=== PATIENT | female | born 1940 | race Caucasian/White ===

== ENCOUNTER 2016-08-22 08:15 | Day surgery (SDC) | payer MEDICARE ==
[2016-08-21 12:26] LABS: HEMATOCRIT 37.1 % (36.0-48.0); HEMOGLOBIN 11.3 g/dL (12-16); MCH 25.8 pg (26.0-34.0); MCHC 30.5 g/dL (31.0-37.0); MCV 84.7 fL (80.0-100.0); MEAN PLATELET VOLUME 10.2 fL (7.4-10.4); RBC 4.38 10x6/uL (4.00-5.40); RDW 14.2 % (11.5-14.5)
[2016-08-21 12:41] LABS: ANION GAP 12.7 mmol/L (8-16); CALCIUM 8.9 mg/dL (8.5-10.1); CARBON DIOXIDE 29.3 mmol/L (21.0-32.0); CREATININE - SERUM 1.9 mg/dL (0.6-1.3)
[~2016-08-22] VITALS: Ht 162.6 cm; Wt 77.1 kg
[~2016-08-22 08:15] MED LIST: ATIVAN0.5 MG PO; CLARITIN 10 MG10 MG PO; COLACE100 MG PO; GLIMEPIRIDE2 MG PO; GLUCOPHAGE1000 MG PO; HYDRALAZINE HCL25 MG PO; JANUVIA100 MG PO; LOPRESSOR25 MG PO; MOBIC7.5 MG PO; OS-CAL500 MG PO; PERCOCET 10/3251 TA1 PO; PRAVACHOL40 MG PO; PRILOSEC20 MG PO; TRIGLIDE160 MG PO; VITAMIN D5000 UNIT PO; ZESTRIL40 MG PO
[2016-08-22] MEDS ORDERED: TRIAMTERENE-HCT1 TA1 PO (08:55)
[2016-08-22 08:57] VITALS: Ht 162.6 cm; Wt 77.1 kg
[2016-08-22] MEDS ORDERED: NORCO 7.5/325 T1 TA1 PO (11:35)
--- NOTE | 2016-08-22 13:29 | NUR ---
1133 BACK FROM LT MIDDLE FINGER TRIGGER RELEASE. LET ARM DRESSING C/D/I ARM ELEVATED ON PILLOW AND ICED. DENIES PAIN WIGGLES FINGERS COLOR PINK GOOD CAPILLARY REFILL TO NAIL BEDS.
--- NOTE | 2016-08-22 13:41 | NUR ---
1203 V/S TAKEN TO TH BR WITH ASSISTACE HAD A BM ALSO ASSISTED WITH [facility]INN CARE AND PAD APPLIED.
--- NOTE | 2016-08-22 13:42 | NUR ---
1245 IV DCD CATHETER INTACT. THEN WENT OVER DISCHARGE INSTRUCTIONS LEFT ARM HAND REMAINS ELEVATED. SENT WITH ICE PACK AND SCRIPT AND FOR FOLLOW UP APPOINTMENT. ASSISTED WITH DRESING.
--- NOTE | 2016-08-22 13:44 | NUR ---
7382 LEFT WITH FAMILY VIA W/C.
--- NOTE | 2016-10-07 12:19 | OP ---
PATIENT NAME: JANNIE GUILLERMO MEDICAL RECORD: [id number] :42 LOCATION:[facility] ADMISSION DATE: SURGEON: NEFTALY WHITLEY MD DATE OF OPERATION: 09/19/2016 DATE: 08/22/2016 PREOPERATIVE DIAGNOSIS: Left middle finger trigger finger. POSTOPERATIVE DIAGNOSIS: Left middle finger trigger finger. PROCEDURE PERFORMED: Left middle finger trigger release. SURGEON: Tanner Whitley MD. ANESTHESIA: TIVA with local. CONDITION: She tolerated the procedure well and was transferred to the recovery room in stable condition. INDICATIONS: This is a 76-year-old female with triggering of her left middle finger. This has got progressively worse. We discussed the options and she wanted to have this released. OPERATIVE REPORT: The patient was taken to the operating room and placed in supine position. TIVA anesthesia was obtained. Left hand was confirmed to be the correct hand. It was prepped and draped in normal fashion. Once this was accomplished, a small incision was made across the A1 satinder area. After the initial incision, blunt dissection was done down to the tendon sheath. The tendon sheath at was cut in line with the tendon. The finger was flexed and extended to verify that it was moving freely. After this was accomplished, I then irrigated, then closed with 3-0 Prolene, placed in soft dressing. She was awakened and transferred to the recovery room in stable condition, having tolerated the procedure well. TRANSINT:[id number] Voice Confirmation ID: [id number] DOCUMENT ID: [id number] NEFTALY WHITLEY MD at 1219 CC: [id number] DICTATION DATE: 09/19/16 1148 [employer] [employer]ER: 09/19/16 1446 [facility] 08/22/16 [place] [id number]
== END 2016-08-22 12:55 | disposition home or self-care (01) ==
LOC: D.OPS 08:15 → D.PAN 10:10 → D.OPS 10:30
PROVIDERS: Anesthesiology
DX: M65.332 Trigger finger, left middle finger (principal)

== ENCOUNTER → 2016-10-22 10:55 | Outpatient (CLI) | payer MEDICARE ==
[2016-08-22 08:57] VITALS: BMI 29.2
[~2016-10-22 10:55] MED LIST changes: +NORCO 7.5/325 T1 TA1 PO; +TRIAMTERENE-HCT1 TA1 PO
[2016-10-22 11:36] LABS: HEMOGLOBIN A1C 6.5 % (4.8-6.0)
[2016-10-22 11:44] LABS: ALKALINE PHOSPHATASE 92 U/L (46-116); ALT (SGPT) 18 U/L (10-68); BILIRUBIN - TOTAL 0.25 mg/dL (0.2-1.3); CALC OSMOLALITY 291 mosm/kg (275-300); CALCIUM 8.9 mg/dL (8.5-10.1); CARBON DIOXIDE 25.4 mmol/L (21.0-32.0); CHLORIDE - SERUM 103 mmol/L (98-107); CHOLESTEROL, TOTAL 183 mg/dL (0-200); CREATININE - SERUM 1.8 mg/dL (0.6-1.3); GLUCOSE 144 mg/dL (74-106); HDL CHOLESTEROL 37 mg/dL (32-96); POTASSIUM - SERUM 4.8 mmol/L (3.5-5.1); PROTEIN - SERUM 7.8 g/dL (6.4-8.2); SODIUM 139 mmol/L (136-145); TRIGLYCERIDE 436 mg/dL (30-200); UREA NITROGEN 43 mg/dL (7-18); eGFR NON AFRICAN AMERICAN 29 mL/min (90-120)
== END | disposition home or self-care (01) ==
LOC: D.LAB 10:55
PROVIDERS: Family Medicine
DX: E11.9 Type 2 diabetes mellitus without complications (principal); I10 Essential (primary) hypertension; E78.3 Hyperchylomicronemia; M15.9 Polyosteoarthritis, unspecified

== ENCOUNTER → 2017-06-24 08:59 | Outpatient (CLI) | payer MEDICARE ==
[2016-08-22 08:57] VITALS: BMI 29.2
[2017-06-24 09:35] LABS: BASOPHILS 0.2 % (0-2); EOSINOPHILS 1.5 % (0-7); HEMATOCRIT 40.9 % (36.0-48.0); IMMATURE GRANULOCYTES 0.4 % (0-5); LYMPHOCYTES 20.4 % (15-50); MCH 26.4 pg (26.0-34.0); MCHC 31.8 g/dL (31.0-37.0); MCV 83.1 fL (80.0-100.0); MEAN PLATELET VOLUME 9.9 fL (7.4-10.4); MONOCYTES 10.2 % (2-11); NEUTROPHILS 67.3 % (40-80); PLATELET COUNT 203 10x3/uL (130-400); RBC 4.92 10x6/uL (4.00-5.40); RDW 13.7 % (11.5-14.5); WBC 12.8 10x3/uL (4.8-10.8)
[2017-06-24 10:04] LABS: ANION GAP 13.1 mmol/L (8-16); BILIRUBIN - TOTAL 0.32 mg/dL (0.2-1.3); CALCIUM 9.4 mg/dL (8.5-10.1); CARBON DIOXIDE 28.6 mmol/L (21.0-32.0); CHOL - HDL RATIO 3.9 ratio (2.3-4.1); CREATININE - SERUM 1.6 mg/dL (0.6-1.3); LDL-HDL RATIO 1.8 ratio (1.5-3.5); POTASSIUM - SERUM 4.7 mmol/L (3.5-5.1); PROTEIN - SERUM 8.1 g/dL (6.4-8.2); THYROID STIMULATING HORMONE 2.23 uIU/mL (0.36-3.74); URIC ACID 7.1 mg/dL (2.6-7.2)
[2017-06-24 10:48] LABS: APPEARANCE CLEAR (CLEAR); BILIRUBIN NEGATIVE (NEGATIVE); COLOR YELLOW (YELLOW); GLUCOSE NEGATIVE (NEGATIVE); KETONE NEGATIVE (NEGATIVE); NITRITE NEGATIVE (NEGATIVE); PROTEIN NEGATIVE (NEGATIVE); SPECIFIC GRAVITY 1.015 (1.005-1.020); UROBILINOGEN NORMAL (NORMAL)
[2017-06-24 10:50] LABS: BACTERIA FEW /hpf (NONE SEEN); EPITHELIAL CELLS 0-5 /hpf (0-5); HYALINE CAST OCC /lpf (NONE SEEN); MUCUS <1+ /lpf (NONE SEEN); RED CELLS - URINE OCC /hpf (0-5); WHITE CELLS - URINE OCC /hpf (0-5)
== END | disposition home or self-care (01) ==
LOC: D.LAB 08:59
PROVIDERS: Family Medicine
DX: E11.9 Type 2 diabetes mellitus without complications (principal); I12.9 Hypertensive chronic kidney disease with stage 1 through stage 4 chronic kidney disease, or unspecified chronic kidney disease; N18.3 Chronic kidney disease, stage 3 (moderate); E78.3 Hyperchylomicronemia

== ENCOUNTER → 2017-12-22 09:04 | Outpatient (CLI) | payer MEDICARE ==
[2016-08-22 08:57] VITALS: BMI 29.2
[2017-12-22 09:38] LABS: BASOPHILS 0.6 % (0-2); EOSINOPHILS 2.2 % (0-7); HEMATOCRIT 40.3 % (36.0-48.0); IMMATURE GRANULOCYTES 0.4 % (0-5); LYMPHOCYTES 37.2 % (15-50); MCHC 32.3 g/dL (31.0-37.0); MCV 83.8 fL (80.0-100.0); MEAN PLATELET VOLUME 10.3 fL (7.4-10.4); MONOCYTES 8.9 % (2-11); NEUTROPHILS 50.7 % (40-80); PLATELET COUNT 190 10x3/uL (130-400); RBC 4.81 10x6/uL (4.00-5.40); RDW 13.1 % (11.5-14.5); WBC 8.2 10x3/uL (4.8-10.8)
[2017-12-22 10:01] LABS: ALBUMIN 3.7 g/dL (3.4-5.0); ANION GAP 13.4 mmol/L (8-16); BILIRUBIN - TOTAL 0.62 mg/dL (0.2-1.3); CALCIUM 9.4 mg/dL (8.5-10.1); CARBON DIOXIDE 28.7 mmol/L (21.0-32.0); CHOL - HDL RATIO 4.3 ratio (2.3-4.1); CREATININE - SERUM 1.5 mg/dL (0.6-1.3); LDL-HDL RATIO 1.9 ratio (1.5-3.5); POTASSIUM - SERUM 5.1 mmol/L (3.5-5.1); PROTEIN - SERUM 7.6 g/dL (6.4-8.2); THYROID STIMULATING HORMONE 2.21 uIU/mL (0.36-3.74)
== END | disposition home or self-care (01) ==
LOC: D.LAB 09:04
PROVIDERS: Family Medicine
DX: E11.9 Type 2 diabetes mellitus without complications (principal); I12.9 Hypertensive chronic kidney disease with stage 1 through stage 4 chronic kidney disease, or unspecified chronic kidney disease; N18.3 Chronic kidney disease, stage 3 (moderate); R53.83 Other fatigue

== ENCOUNTER → 2018-05-18 11:04 | Outpatient (CLI) | payer MEDICARE ==
[2016-08-22 08:57] VITALS: BMI 29.2
[2018-05-18 12:23] LABS: ANION GAP 13.4 mmol/L (8-16); CALCIUM 9.1 mg/dL (8.5-10.1); CARBON DIOXIDE 27.2 mmol/L (21.0-32.0); CREATININE - SERUM 1.4 mg/dL (0.6-1.3); POTASSIUM - SERUM 4.6 mmol/L (3.5-5.1)
== END | disposition home or self-care (01) ==
LOC: D.LAB 11:04
PROVIDERS: Family Medicine
DX: E11.9 Type 2 diabetes mellitus without complications (principal); I12.9 Hypertensive chronic kidney disease with stage 1 through stage 4 chronic kidney disease, or unspecified chronic kidney disease; N18.3 Chronic kidney disease, stage 3 (moderate)

== ENCOUNTER → 2018-06-18 07:55 | Outpatient (CLI) | payer MEDICARE ==
[2016-08-22 08:57] VITALS: BMI 29.2
[~2018-06-18 07:55] MED LIST changes: +NORCO 10-325 TA1 TAB PO; +OXYCODONE-APAP1 T10 PO
== END | disposition home or self-care (01) ==
LOC: D.MRI 07:55
DX: M75.42 Impingement syndrome of left shoulder (principal)

== ENCOUNTER 2018-07-15 06:20 | Day surgery (SDC) | payer MEDICARE ==
[2018-07-13 10:40] LABS: HEMATOCRIT 41.3 % (36.0-48.0); HEMOGLOBIN 13.4 g/dL (12-16); MCH 27.6 pg (26.0-34.0); MCHC 32.4 g/dL (31.0-37.0); MEAN PLATELET VOLUME 10.1 fL (7.4-10.4); RBC 4.86 10x6/uL (4.00-5.40); RDW 12.6 % (11.5-14.5); WBC 8.4 10x3/uL (4.8-10.8)
[2018-07-13 10:53] LABS: ANION GAP 11.9 mmol/L (8-16); CALCIUM 9.3 mg/dL (8.5-10.1); CARBON DIOXIDE 29.7 mmol/L (21.0-32.0); CREATININE - SERUM 1.5 mg/dL (0.6-1.3); POTASSIUM - SERUM 4.6 mmol/L (3.5-5.1)
[~2018-07-15] VITALS: Ht 162.6 cm; Wt 78.0 kg
[~2018-07-15 06:20] MED LIST changes: -NORCO 10-325 TA1 TAB PO
[2018-07-15 07:29] VITALS: BP 173/88; Ht 162.6 cm; Wt 78.0 kg
[2018-07-15] MEDS ORDERED: NORCO 10-325 TA1 TAB PO (09:16)
--- NOTE | 2018-08-08 10:37 | OP ---
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 POSTOPERATIVE DIAGNOSES: Impingement syndrome, acromioclavicular arthritis of the left shoulder, severe biceps tendinitis. PROCEDURES: 1. Arthroscopic distal clavicle excision done through separate incision. 2. Arthroscopic subacromial decompression, acromioplasty and bursectomy. 3. Biceps tenotomy. SURGEON: Gus Solis MD ANESTHESIA: General. INTRAOPERATIVE COMPLICATIONS: None. SUMMARY OF PATHOLOGIC FINDINGS: The patient had extreme biceps tendinitis with a near complete tear of the biceps tendon at the proximal aspect of the transverse groove. Furthermore, the patient had a downward sloping acromion with excoriation of the coracoacromial ligament as well as grade IV chondromalacia of the acromioclavicular joint. OPERATIVE SUMMARY IN DETAIL: After obtaining the appropriate preoperative orthopedic surgery consent as well as anesthetic consultation, evaluation, and clearance, the patient was brought to the operating room and placed on the operating table in supine position. After adequate general laryngeal mask airway was administered, the patient was placed in a right lateral decubitus position. All pressure points were well padded to include down leg peroneal pad as well as axillary roll. The patient was held firmly to the operating table using the vacuum pack suction system. Left upper extremity and then shoulder were then prepped and draped in routine sterile fashion. Arm was held in the Arthrex traction boom in 30 degrees of forward flexion, 30 degrees of abduction, and 10 pounds of traction laterally. Arthroscopy was established in the glenohumeral joint from the posterior portal. Anterior portal was established in the anterior safe interval. Diagnostic arthroscopy showed the patient to have severe biceps tendinitis, rotator cuff tear was relatively healthy. The Arthrex tissue ablation system was utilized to detach the biceps tendon at the bicipital labral junction. Having completed this, arthroscopy was established in the subacromial space. Accessory lateral portal was created to denude the undersurface of the acromion of all soft tissue elements. A 5-0 bur was then utilized to perform acromioplasty at the level of acromioclavicular joint. Note, the coracoacromial ligament was also released. Then, through a separate arthroscopic anterior portal, distal clavicle was excised for 1 cm. Having completed this, all bursitis was taken down superiorly, anteriorly, laterally as well as posteriorly. Having completed this, arthroscopy portals were closed in routine interrupted fashion using 4-0 Prolene. Sterile dressings were applied. The patient was awakened and taken to the recovery room in stable condition. All final needle and sponge counts were correct. OPERATIVE REPORT [id number] JANNIE GUILLERMO TRANSINT:[id number] Voice Confirmation ID: [id number] DOCUMENT ID: [id number] WILL WILEY, GUS VERAS at 1037 CC: [id number] DICTATION DATE: 08/06/18 1222 OPERATING ROOM TECH: 08/06/18 1327 [facility] [place] 07/15/[address] [id number]
== END 2018-07-15 11:00 | disposition home or self-care (01) ==
LOC: D.OPS 06:20 → D.PAN 08:30 → D.OPS 08:30 → D.PAN 08:50 → D.OPS 09:00
PROVIDERS: Anesthesiology
DX: M75.42 Impingement syndrome of left shoulder (principal); M13.812 Other specified arthritis, left shoulder; M75.22 Bicipital tendinitis, left shoulder; Z01.812 Encounter for preprocedural laboratory examination

== ENCOUNTER → 2018-10-14 08:23 | Outpatient (CLI) | payer MEDICARE ==
[2018-07-15 07:29] VITALS: BMI 29.6
[~2018-10-14 08:23] MED LIST changes: +NORCO 10-325 TA1 TAB PO
== END | disposition home or self-care (01) ==
LOC: D.MRI 10-13 08:00
PROVIDERS: ATTEND Orthopaedic Surgery
DX: M54.12 Radiculopathy, cervical region (principal)

== ENCOUNTER → 2018-11-24 16:25 | Outpatient (CLI) | payer MEDICARE ==
[2018-07-15 07:29] VITALS: BMI 29.6
[2018-11-24 17:54] LABS: ANION GAP 16.9 mmol/L (8-16); CALCIUM 9.2 mg/dL (8.5-10.1); CARBON DIOXIDE 25.9 mmol/L (21.0-32.0); CHOL - HDL RATIO 3.8 ratio (2.3-4.1); CREATININE - SERUM 1.5 mg/dL (0.6-1.3); POTASSIUM - SERUM 4.8 mmol/L (3.5-5.1)
== END | disposition home or self-care (01) ==
LOC: D.LAB 16:25
PROVIDERS: ATTEND Family Medicine
DX: I10 Essential (primary) hypertension (principal); E11.9 Type 2 diabetes mellitus without complications; E78.3 Hyperchylomicronemia; N18.3 Chronic kidney disease, stage 3 (moderate)

== ENCOUNTER → 2019-05-23 08:42 | Outpatient (CLI) | payer MEDICARE ==
[2018-07-15 07:29] VITALS: BMI 29.6
[2019-05-23 09:31] LABS: ANION GAP 12.4 mmol/L (8-16); CALCIUM 9.2 mg/dL (8.5-10.1); CARBON DIOXIDE 29.8 mmol/L (21.0-32.0); CREATININE - SERUM 1.5 mg/dL (0.6-1.3); POTASSIUM - SERUM 4.2 mmol/L (3.5-5.1)
[2019-05-24 11:10] LABS: CREATININE - URINE 73.4 mg/dL (Not Estab.); MICROALB/CREAT RATIO 5.9 (0.0-30.0); MICROALBUMIN - URINE 4.3 ug/mL (Not Estab.)
== END | disposition home or self-care (01) ==
LOC: D.LAB 08:42
PROVIDERS: ATTEND Family Medicine
DX: E11.9 Type 2 diabetes mellitus without complications (principal); N18.3 Chronic kidney disease, stage 3 (moderate); I12.9 Hypertensive chronic kidney disease with stage 1 through stage 4 chronic kidney disease, or unspecified chronic kidney disease; M19.90 Unspecified osteoarthritis, unspecified site

== ENCOUNTER → 2020-12-18 10:31 | Outpatient (CLI) | payer MEDICARE ==
[2020-08-08 16:42] VITALS: BMI 31.8
[~2020-12-18 10:31] MED LIST changes: +BAYER CHEWABLE81 MG PO; +FISH OIL 1,0001 CA1 PO; +GLUCOPHAGE500 MG PO; +KEPPRA750 MG PO; +METFORMIN HCL500 M1 PO; +VITAMIN D3 5,01 EACH PO
[2020-12-18 11:05] LABS: BASOPHILS 0.4 % (0-2); EOSINOPHILS 1.9 % (0-7); HEMATOCRIT 35.1 % (36.0-48.0); HEMOGLOBIN 11.2 g/dL (12-16); IMMATURE GRANULOCYTES 0.1 % (0-5); LYMPHOCYTE ABS# 3.02 10x3/uL (1.18-3.74); LYMPHOCYTES 40.9 % (15-50); MCH 27.5 pg (26.0-34.0); MCHC 31.9 g/dL (31.0-37.0); MEAN PLATELET VOLUME 9.7 fL (7.4-10.4); MONOCYTES 11.2 % (2-11); NEUTROPHIL ABS# 3.35 10x3/uL (1.56-6.13); NEUTROPHILS 45.5 % (40-80); RBC 4.08 10x6/uL (4.00-5.40); RDW 13.2 % (11.5-14.5); WBC 7.4 10x3/uL (4.8-10.8)
[2020-12-18 11:22] LABS: ALBUMIN 3.6 g/dL (3.4-5.0); ANION GAP 12.3 mmol/L (8-16); BILIRUBIN - TOTAL 0.41 mg/dL (0.2-1.3); CALCIUM 9.3 mg/dL (8.5-10.1); CARBON DIOXIDE 28.4 mmol/L (21.0-32.0); CREATININE - SERUM 1.5 mg/dL (0.6-1.3); PLATELET COUNT 201 10x3/uL (130-400); POTASSIUM - SERUM 4.7 mmol/L (3.5-5.1); PROTEIN - SERUM 7.2 g/dL (6.4-8.2)
== END | disposition home or self-care (01) ==
LOC: D.LAB 10:31
PROVIDERS: ATTEND Family Medicine
DX: R56.9 Unspecified convulsions (principal)